=== PATIENT | male | born 1985 | race Asian ===

== ENCOUNTER 2017-08-24 12:12 | Day surgery (SDC) | payer OTHER ==
[2017-08-24] MEDS ORDERED: MIDAZOLAM 1 MG/ML 2 ML INJ (15:06)
[2017-08-24] MEDS ORDERED: ONDANSETRON 4 MG INJ (15:06)
[2017-08-24] MEDS ORDERED: METOCLOPRAMIDE 10 MG INJ (15:06)
[2017-08-24] MEDS ORDERED: HYDROmorphONE 2 MG/ML SYG (15:06)
[2017-08-24] MEDS ORDERED: PROPOFOL 20 ML (15:06)
[2017-08-24] MEDS ORDERED: FENTAnyl 50 MCG/ML VIAL (15:16)
[2017-08-24] MEDS ORDERED: CEFAZOLIN 1 GM INJ (15:22)
[2017-08-24] MEDS ORDERED: KETOROLAC 30 MG INJ (15:22)
[2017-08-24] MEDS ORDERED: morphine 2 MG INJ IV (15:30)
[2017-08-24] MEDS ORDERED: EPHEDrine SULFATE 50 MG/5 ML SYG (15:39)
[2017-08-24] MEDS: LIDOCAINE 1% (MPF) 30 ML INJ (15:49)
[2017-08-24] MEDS ORDERED: MEPERIDINE 25 MG INJ IV (16:00)
[2017-08-24] MEDS ORDERED: OXYCODONE/ACETAMINOPHEN (5/325) TAB PO ×2 (16:00)
[2017-08-24] MEDS ORDERED: ONDANSETRON 4 MG INJ IV (16:00)
[2017-08-24] MEDS ORDERED: DIPHENHYDRAMINE 50 MG INJ IV (16:00)
[2017-08-24] MEDS ORDERED: HYDROmorphONE (0.2 MG/ML) 10ML SYG IV ×3 (16:00)
[2017-08-24] MEDS: morphine SULFATE/PF (10 MG/10 ML) INJ (16:43)
[2017-08-24] MEDS: ROPIVACAINE 0.5 % 30 ML VIAL (16:43)
[2017-08-24] MEDS: NEOMYC/POLYMYX/BACIT 30 GM OINT (16:45)
== END 2017-08-24 18:30 | disposition home or self-care (01) ==
LOC: SDS 12:12
DX: M23.241 Derangement of anterior horn of lateral meniscus due to old tear or injury, right knee (principal)
CPT/HCPCS: 29881; 82306